=== PATIENT | male | born 1945 | race Caucasian/White ===

== ENCOUNTER → 2017-12-10 | Outpatient (CLI) | payer MEDICARE, BC ==
[2017-06-06 08:53] VITALS: BMI 28.4
[~2017-12-10] MED LIST: AMOX-559 PO; AMOXIC; ASPI-715 PO; CELE200C7 PO; FENO45CA PO; FEX60 PO; LIS10 PO; LOR5/325 PO; LOSA-54 PO; METO1TAB5 PO; METO50TA19 PO; MULT-820 PO; MULT-885 PO; OMEG10007; OMEP-153 PO; PER PO; POLY17PO21 PO; RIV10 PO; SIMV-42 PO; VIT D3 PO; WARF-1 PO
== END ==
LOC: RESP 20:33
PROVIDERS: ATTEND Nurse Practitioner Family
DX: Z02.9 Encounter for administrative examinations, unspecified (principal)

== ENCOUNTER → 2018-05-15 | Outpatient (CLI) | payer MEDICARE, BC ==
[2017-06-06 08:53] VITALS: BMI 28.4
--- NOTE | 2018-05-15 12:13 | EKG ---
FACILITY: [facility] - [place] PATIENT NAME: JULIUS LUIS : [id number] MR: [id number] V: [id number] EXAM DATE: ORDERING PHYSICIAN: VAHE FRY TECHNOLOGIST: INOCENTE Oquendo Reason : IRREGULAR Blood Pressure : / mmHG Vent. Rate : 099 BPM Atrial Rate : 099 BPM P-R Int : 134 ms QRS Dur : 078 ms QT Int : 342 ms P-R-T Axes : 072 059 053 degrees QTc Int : 438 ms Atrial flutter Nonspecific ST abnormality Abnormal ECG When compared with ECG of 03-SEP-2017 13:39, Nonspecific T wave abnormality no longer evident in Lateral leads Confirmed by KADEN CARPIO ([id number]) on 05/17/2018 2:47:09 PM Referred By: ERIC Confirmed By:KADEN CARPIO
== END ==
LOC: RESP 11:56
PROVIDERS: ATTEND Nurse Practitioner Family
DX: I48.92 Unspecified atrial flutter (principal); R94.31 Abnormal electrocardiogram [ECG] [EKG]
CPT/HCPCS: 93005

== ENCOUNTER → 2018-05-19 | Outpatient (CLI) | payer MEDICARE, BC ==
[2017-06-06 08:53] VITALS: BMI 28.4
--- NOTE | 2018-05-19 15:27 | RADIOLOGY IMAGING REPORT ---
FACILITY: [facility] PATIENT NAME: Partha Kat : 1945 MR: [id number] V: [id number] EXAM DATE: ORDERING PHYSICIAN: VAHE FRY TECHNOLOGIST: Location: [facility] [place] Patient: Partha Kat : 1945 Visit/Account:[id number] Date of Sevice: 05/19/2018 THYROID HISTORY: Primary hyperparathyroidism COMPARISON: December 10, 2016 FINDINGS: SIZE: Right lobe: 5.4 x 2.3 x 1.5 cm Left lobe: 5.4 x 2.7 x 1.4 cm Isthmus: 7 mm PARENCHYMA: Homogeneous. NODULES: Right lobe: * In the inferior aspect of the right lobe there is an isoechoic nodule measuring 7 mm in diameter. * There is an additional 1.4 cm in diameter well-circumscribed isoechoic nodule medially inferior p ole. * There is a 1.1 cm well-circumscribed hypoechoic nodule posterior aspect of the midpole. * Posterior to the upper pole the right lobe are two well-circumscribed hypoechoic nodules measuring 1.1 and 1 cm which may represent parathyroid glands Left lobe: * In the mid to upper pole there is a 1.4 cm hypoechoic nodule with coarse calcifications. This fabiola ears well totally unchanged when compared the prior study. * In the mid left lobe there is a 1.1 cm well-circumscribed spongiform nodule. There are additional smaller nodules identified bilaterally Isthmus: * None discrete. VASCULARITY: Within normal limits. ADDITIONAL FINDINGS: None. IMPRESSION: Bilateral thyroid nodules appear relatively unchanged REFERENCE: 2015 [place] [employer] Management Guidelines for Adult Patients with Thyroid Nodules and D ifferentiated Thyroid Cancer: The [place] [employer] Guidelines Task Force on Thyroid Nodul es and Differentiated Thyroid Cancer. SONOGRAPHIC PATTERNS: * Benign: Purely cystic nodules (no solid component); estimated risk of malignancy <1 percent; no bi opsy recommended. * Very Low Suspicion: Spongiform or partially cystic nodules without any of the sonographic features described in low, intermediate, or high suspicion patterns; estimated risk of malignancy <3 percent; consider FNA at > 2 cm (Observation without FNA is also a reasonable option). * Low Suspicion: Isoechoic or hyperechoic solid nodule, or partially cystic nodule with eccentric so lid areas, without microcalcification, irregular margin or ETE (extra-thyroidal extension), or taller than wide shape; estimated risk of malignancy 5-10 percent; recommend FNA at >1.5 cm. * Intermediate Suspicion: Hypoechoic solid nodule with smooth margins without microcalcifications, E TE (extra-thyroidal extension), or taller than wide shape; estimated risk of malignancy 10-20 percent ; recommend FNA at > 1 cm. * High Suspicion: Solid hypoechoic nodule or solid hypoechoic component of a partially cystic nodule with one or more of the following features: irregular margins (infiltrative, microlobulated), microc alcifications, taller than wide shape, rim calcifications with small extrusive soft tissue component, evidence of ETE (extra-thyroidal extension); estimated risk of malignancy >70-90 percent; recommend FNA at > 1 cm. NOTES: * Although a sonographically suspicious subcentimeter thyroid nodule without evidence of extrathyroi daniel extension or sonographically suspicious lymph nodes may be observed with close sonographic follow -up rather than pursuing immediate FNA, patient age and preference may modify decision-making. A > 50% interval increase in nodule volume and/or development of new suspicious sonographic features are felt to be a valid reasons for potential re-aspiration of a nodule previously shown to have benig n FNA cytology. Report Dictated By: Marianne Nicolas MD at 05/19/2018 3:16 PM Report E-Signed By: Marianne Nicolas MD at 05/19/2018 3:23 PM WSN:[email or web address]
== END ==
LOC: US 08:49
PROVIDERS: ATTEND Nurse Practitioner Family
DX: E04.2 Nontoxic multinodular goiter (principal)
CPT/HCPCS: 76536

== ENCOUNTER → 2018-07-02 | Outpatient (REF) | payer MEDICARE, BC ==
[2017-06-06 08:53] VITALS: BMI 28.4
== END ==
LOC: ZZSENDIN 09:47
PROVIDERS: ATTEND Urology
DX: R97.20 Elevated prostate specific antigen [PSA] (principal)
CPT/HCPCS: 81313

== ENCOUNTER → 2018-07-03 | Outpatient (CLI) | payer MEDICARE, BC ==
[2017-06-06 08:53] VITALS: BMI 28.4
--- NOTE | 2018-07-03 14:16 | RADIOLOGY IMAGING REPORT ---
FACILITY: [facility] - [place] PATIENT NAME: Partha Kat : 1945 MR: [id number] V: [id number] EXAM DATE: ORDERING PHYSICIAN: KADEN WILLETT TECHNOLOGIST: Location: [facility] Patient: Partha Kat : 1945 Visit/Account:[id number] Date of Sevice: 07/03/2018 Examination: Nuclear Medicine Parathyroid Scan Comparison: None available History: Hypercalcemia. Procedure: 27.3 mCi technetium 99m Sestamibi was injected intravenously. Multiplanar Gamma camera im ages were obtained of the head, neck and chest at 15 minutes and 3 hours following radiotracer admini stration. FINDINGS: 15 minute images: Normal uptake of tracer by the salivary glands, the thyroid gland, myocardium, and visualized upper abdomen. 3 hour images: Normal washout of tracer from the thyroid gland. No focal areas of abnormal radiotrac er uptake are identified in the neck or mediastinum. IMPRESSION: Negative parathyroid scan. Report Dictated By: Willy Riddle MD at 07/03/2018 2:09 PM Report E-Signed By: Willy Riddle MD at 07/03/2018 2:12 PM WSN:[email or web address]
== END ==
LOC: NUC 01:56
PROVIDERS: ATTEND Surgery
DX: E83.52 Hypercalcemia (principal)
CPT/HCPCS: 78070; 82340; A9500

== ENCOUNTER 2018-07-23 00:49 | Day surgery (SDC) | payer MEDICARE, BC ==
[2017-06-06 08:53] VITALS: Ht 188 cm; Wt 98.9 kg
[2018-07-23] VITALS (7 sets, daily range): BP systolic 147–166; BP diastolic 81–99
[~2018-07-23] VITALS: Ht 188 cm; Wt 98.9 kg
[~2018-07-23 00:49] MED LIST changes: +APIX5TAB PO; +ATOR20TA65 PO; +BENZ200C15 PO; +CHOL200074 PO; +DILT120C79 PO; +GUAI200T22 PO; +OXYGENHOME INH
[2018-07-23] MEDS ORDERED: ceFAZolin(*) 2GM/D5W 50ML 50 ML IVPB ONE (06:45)
[2018-07-23] MEDS ORDERED: NORMOSOL R SOLN(*) 1000 ML BAG 1,000 ML IV PRN (08:30)
[2018-07-23] MEDS ORDERED: MIDAZOLAM 2 MG/2 ML VIAL IVP PRN (08:30)
[2018-07-23] MEDS ORDERED: LIDOCAINE/SOD BICARB 8.4% SYR ID ONE (08:30)
[2018-07-23] MEDS ORDERED: ROPIVACAINE 0.5% 20 ML VIAL ONE (09:26)
[2018-07-23] MEDS ORDERED: GELATIN SPONGE 12-7MM ONE (09:26)
--- NOTE | 2018-07-23 09:36 | RADIOLOGY IMAGING REPORT ---
FACILITY: [facility] PATIENT NAME: Partha Kat : 1945 MR: [id number] V: [id number] EXAM DATE: ORDERING PHYSICIAN: KADEN WILLETT TECHNOLOGIST: Location: [facility] [place] Patient: Partha Kat : 1945 Visit/Account:[id number] Date of Sevice: 07/23/2018 EXAMINATION: Nuclear medicine parathyroid scan HISTORY: Preoperative testing for parathyroidectomy. Hypercalcemia. COMPARISON: Sestamibi scan from 07/03/2018. TECHNIQUE: 24.4 mCi Technetium-99m Sestamibi was injected intravenously. Gamma camera images were ob tained of the head, neck and chest immediately with flow images, and AP and lateral planar images aft er 10.3 minutes. FINDINGS: Neck: Question faint area of uptake on the right just below the thyroid on the immediate images, whic h fades gradually. Normal thyroid and salivary gland uptake. Mediastinum: Normal biodistribution. No abnormal uptake. IMPRESSION: Faint uptake on the right below the thyroid on the immediate images could be vascular or a right infe rior parathyroid adenoma. Report Dictated By: Danielle Reveles MD at 07/23/2018 9:16 AM Report E-Signed By: Danielle Reveles MD at 07/23/2018 9:32 AM WSN:[email or web address]
[2018-07-23] MEDS ORDERED: ONDANSETRON 4 MG/2 ML VIAL ONE (10:00)
[2018-07-23] MEDS ORDERED: SUCCINYLCHOL CHL 200MG/10ML VL ONE (10:00)
[2018-07-23] MEDS ORDERED: DEXAMETHASONE SOD PHOS 10MG/ML ONE (10:00)
[2018-07-23] MEDS ORDERED: PROPOFOL EMUL 10MG/ML 20 ML VL ONE (10:00)
[2018-07-23] MEDS ORDERED: fentaNYL CITR 100 MCG/2 ML AMP ONE ×2 (10:04→11:25)
[2018-07-23] MEDS ORDERED: DOCU-416 PO (12:24)
[2018-07-23] MEDS ORDERED: OXYC-854 PO (12:24)
--- NOTE | 2018-07-23 12:31 | Short(Outpt) Discharge Summary ---
Discharge Summary Reason for Hosp/Final Diag: (1) Primary hyperparathyroidism Status: Chronic Hospital Course & Plan: Right superior parathyroid adenoma excision completed without problems. Departure Discharge to: Home, Self Care Discharge Instructions Home Meds Active Scripts Docusate Sodium (COLACE) 100 Mg Capsule, 1 CAP PO BID, #30 CAP 0 Refills TAKE WITH A FULL GLASS OF WATER Prov:KADEN WILLETT MD 07/23/18 Oxycodone Hcl/Acet 5/325 Mg (ENDOCET 5-325 TABLET) 1 Each Tablet, 1 TAB PO Q4H PRN for PAIN, #20 TAB 0 Refills Prov:KADEN WILLETT MD 07/23/18 Reported Medications Benzonatate (BENZONATATE) 200 Mg Capsule, 200 MG PO TID PRN for prn, #15 CAP 07/13/18 Diltiazem Hcl (DILTIAZEM ER) 120 Mg Cap.er.deg, 120 MG PO QDAY 07/13/18 Oxygen (OXYGEN) Inha, 2 L INH HS, L WHILE SLEEPING 07/13/18 Apixaban (ELIQUIS) 5 Mg Tablet, 5 MG PO BID 07/13/18 Atorvastatin Calcium (ATORVASTATIN CALCIUM) 20 Mg Tablet, 1 TAB PO QDAY, TAB 07/13/18 Cholecalciferol (Vitamin D3) (VITAMIN D-3) 2,000 Unit Capsule, 2000 UNIT PO QDAY, CAPSULE 07/13/18 Fenofibric Acid (Choline) (FENOFIBRIC ACID) 45 Mg Capsule.dr, 45 MG PO DAILY 06/05/17 Omeprazole (Omeprazole) 20 Mg Tablet.dr, 40 MG PO DAILY, 0 Refills 09/26/08 Discontinued Reported Medications Guaifenesin (GUAIFENESIN) 200 Mg Tablet, 200 MG PO PRN 07/13/18 Follow up Referrals: General Surgery - 08/05/18 @ Surgery, General with KADEN WILLETT MD You have a follow up appointment scheduled with Dr. Willett on 08/05/18, at 1:00pm. Diet: Regular Activity: As Tolerated Special Instructions: You may leave the incision open to air but leave the steristrips in place until they fall off on their own. You may shower starting on 07/25/18, but do not immerse the incision for 2 weeks. You may restart your Eliquis on 07/26/18. Avoid NSAIDS (ibuprofen, motrin, aleve, advil, etc) for 1 week after surgery. Tylenol (acetaminophen) is OK. Copies to: VAHE FRY ; KADEN WILLETT MD Jul 23, 2018 12:31
--- NOTE | 2018-07-23 12:40 | Post Operative Progress Note ---
Post Operative Progress Note Date: Jul 23, 2018 Time: 12:31 Surgeon: Lashon Dictation number: [id number] Anesthesia: GETA by Dr. 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
--- NOTE | 2018-07-23 14:15 | OPERATIVE REPORT 1 ---
EVENT DATE: July 23, 2018 SURGEON: Bismark Oates MD ANESTHESIOLOGIST: Oli Virgen MD ANESTHESIA: General endotracheal anesthesia. PREOPERATIVE DIAGNOSIS Primary hyperparathyroidism. 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 PROCEDURE PERFORMED Right neck exploration with excision of a right superior parathyroid adenoma. COMPLICATIONS None. CONDITION Stable. ESTIMATED BLOOD LOSS Minimal. FINDINGS This patient had a 2 cm in diameter right superior parathyroid adenoma. His presurgical parathyroid hormone level was measured at 200, and his preexcision intraoperative rapid parathyroid hormone level was 500, and then at 10 minutes was 70, and then continued to decline every 10 minutes to 50 and then 30. INDICATIONS This is a 73-year-old gentleman who was referred to my office with hypercalcemia with an inappropriately elevated parathyroid hormone then about 76. Preoperative imaging was read as no localizable adenomas, but on my reading, I was very suspicious of a right superior parathyroid adenoma based on the parathyroid scan and also on the ultrasound there was a nodule posterior to the superior pole of the thyroid suspicious for a parathyroid adenoma. This patient has provided consent for a neck exploration and removal of one or more of his parathyroid glands. DESCRIPTION OF PROCEDURE The patient was brought to the operating room and placed upon the operating table. General endotracheal anesthesia was administered with a endotracheal tube for nerve monitoring and nerve monitoring equipment and leads were all set up on the patient. He was placed in the reclining beach chair configuration and we had a second IV set up for blood draws. His neck was then prepped and draped in sterile fashion. A timeout was completed. I had previously marked his neck in a crease just above the suprasternal notch and made just over a 1 inch incision in this area after injecting the skin with 0.5% Ropivacaine plain. I dissected through the dermis and subcutaneous and divided the platysmas muscle, created subplatysmal flaps both superior and inferiorly and then divided the median raphe between the strap muscles. I then developed the plane just anterior to the thyroid and posterior to the strap muscles over to the right and then slowly mobilized the right thyroid lobe without dividing the vasculature. I did divide the middle thyroidal vein using clips and dividing the vein between clips. I was able to identify the inferior parathyroid gland which appeared normal in size, texture and color. I then identified the superior parathyroid gland which was very large and very dark in color and multilobular. I dissected this free while preserving its vascular inflow and then just before dividing its vascular pedicle we madiha a parathyroid hormone level which was over 500. Immediately before surgery we tested our IV line and before incision was even made the parathyroid hormone level was 200. I then divided the vascular pedicle and then sent the parathyroid gland fresh to pathology. Prior to doing this I put the gamma probe on it and the patient had been preoperatively injected with Technetium and the gamma output was read at about 40, whereas the baseline was at about 25 showing other evidence of parathyroid adenoma. We then checked parathyroid hormone levels at 10 minutes after excision and then 20 and then 30. The 10 minute was 70, the 20 minute was 55 and the 30 minute parathyroid hormone levels were at 33 indicating a good resection and no further hyperparathyroidism. I also sent the parathyroid for frozen and actually walked over there while we were waiting for the parathyroid hormone levels to come back, and I looked at the parathyroid gland under the microscope with the pathologist and he confirmed it looked consistent with a parathyroid adenoma. After this, I went to the operating room, scrubbed back in, irrigated and dried the patient's right neck. I placed some Fibrillar in there. There was not really much in the way of bleeding. I then reapproximated the median raphe between the strap muscles with interrupted 3-0 Vicryl sutures and the platysmas muscle was reapproximated with interrupted 3-0 Vicryl sutures. The skin was closed with interrupted 3-0 Vicryl deep dermal sutures and 4-0 Monocryl running subcuticular sutures. The skin was cleaned, dried and Steri-Strips were applied longitudinally over the incision and this would serve as the patient's dressing. I had the anesthesiologist extubate the patient while he was deep and we used the GlideScope to look at the vocal cords. We had also done this preoperatively and they were symmetric preoperatively and postoperatively. He was then further awakened and then brought to the recovery room in stable condition having tolerated the procedure without any apparent problems. GLORIA
[2018-07-24] MEDS ORDERED: CALC500T6 PO (09:52)
== END 2018-07-23 13:13 | disposition home or self-care (01) ==
LOC: OR 00:49
PROVIDERS: ATTEND Surgery
DX: D35.1 Benign neoplasm of parathyroid gland (principal)
CPT/HCPCS: 60500; 78070; 83970; 88305; 88331; A9500; J0330; J1100; J2405; J2704; J2795; J3010; J0690

== ENCOUNTER → 2018-11-18 | Outpatient (CLI) | payer MEDICARE, BC ==
[2017-06-06 08:53] VITALS: BMI 28.4
[~2018-11-18] MED LIST changes: +CALC500T6 PO; +DOCU-416 PO; +OXYC-854 PO; +POLY17PO11 PO; -POLY17PO21 PO
--- NOTE | 2018-11-20 21:09 | RT HOLTER TEST ---
FACILITY: [facility] - [place] PATIENT NAME: JULIUS LUIS : [id number] MR: [id number] V: [id number] EXAM DATE: ORDERING PHYSICIAN: VAHE FRY TECHNOLOGIST: UZIEL Hook-up date: 2018-11-18 11:19:00 Duration: 47:59:00 Test Indications: DIZZY Medications: 152995 QRS complexes 2588 Ventricular ectopics which represent 1 % of total QRS comp. 5933 Supraventricular ectopics which represent 2 % of total QRS comp. * Paced QRS complexes which represent % of total QRS comp. VENTRICULAR ECTOPY 2527 Isolated 44 Bigeminal Cycles 24 Couplets 3 Runs 13 Beats in Runs 6 Beats LONGEST at 153 BPM at 12:50:07 2018-11-18 6 Beats FASTEST at 153 BPM at 12:50:07 2018-11-18 SUPRAVENTRICULAR ECTOPY 5714 Isolated 108 Couplets 1 Runs 3 Beats in Runs 3 Beats LONGEST at 174 BPM at 10:57:43 2018-11-19 3 Beats FASTEST at 174 BPM at 10:57:43 2018-11-19 HEART RATES 55 MIN at 06:24:58 2018-11-20 80 AVG 151 MAX at 12:50:08 2018-11-18 LONGEST RR 1.448 secs at 02:07:06 2018-11-20 S-T LEVELS Channel 1 -12.800 mm MIN at 11:19:00 2018-11-18 -12.800 mm MAX at 11:19:00 2018-11-18 Channel 2 -12.800 mm MIN at 11:19:00 2018-11-18 -12.800 mm MAX at 11:19:00 2018-11-18 Channel 3 -12.800 mm MIN at 11:19:00 2018-11-18 -12.800 mm MAX at 11:19:00 2018-11-18 Sinus rhythm Frequent Premature ventricular complexes Frequent Premature supraventricular complexes Confirmed by KADEN CARPIO ([id number]) on 11/20/2018 9:08:56 PM Referred By: Overread By: KADEN CARPIO
== END ==
LOC: RESP 01:30
PROVIDERS: ATTEND Nurse Practitioner Family
DX: I49.3 Ventricular premature depolarization (principal)
CPT/HCPCS: 93225; 93226

== ENCOUNTER → 2019-04-28 | Outpatient (CLI) | payer MEDICARE, BC ==
[2017-06-06 08:53] VITALS: BMI 28.4
--- NOTE | 2019-04-29 12:53 | RADIOLOGY IMAGING REPORT ---
FACILITY: [facility] PATIENT NAME: Partha Kat : 1945 MR: [id number] V: [id number] EXAM DATE: ORDERING PHYSICIAN: VAHE FRY TECHNOLOGIST: Location: [facility] [place] Patient: Partha Kat : 1945 Visit/Account:[id number] Date of Sevice: 04/28/2019 US GROIN HISTORY: Left groin abnormality. Rule out hernia. COMPARISON: CT examination chest abdomen and pelvis from May 2017 FINDINGS: Duplex sonographic images of the left groin were obtained. There is a bowel and fat-containing left i nguinal hernia. No mass or drainable fluid collection. IMPRESSION: There is a bowel and fat-containing left inguinal hernia Report Dictated By: Reynaldo Sanz MD at 04/28/2019 5:13 PM Report E-Signed By: Reynaldo Sanz MD at 04/29/2019 12:48 PM WSN:[id number]
== END ==
LOC: US 00:28
PROVIDERS: ATTEND Nurse Practitioner Family
DX: K40.90 Unilateral inguinal hernia, without obstruction or gangrene, not specified as recurrent (principal)
CPT/HCPCS: 76705

== ENCOUNTER → 2019-05-25 | Outpatient (CLI) | payer MEDICARE, BC ==
[2017-06-06 08:53] VITALS: BMI 28.4
[~2019-05-25] MED LIST changes: +GUAI600T57 PO; +MULT1TAB54 PO; +SIL20 PO; +VALS160T8 PO; +VITA-175 PO
--- NOTE | 2019-05-25 16:58 | EKG ---
FACILITY: [facility] PATIENT NAME: JULIUS LUIS : [id number] MR: [id number] V: [id number] EXAM DATE: ORDERING PHYSICIAN: KADEN WILLETT TECHNOLOGIST: Test Reason : pre-op Blood Pressure : / mmHG Vent. Rate : 084 BPM Atrial Rate : 084 BPM P-R Int : 168 ms QRS Dur : 084 ms QT Int : 348 ms P-R-T Axes : 059 049 081 degrees QTc Int : 411 ms Normal sinus rhythm Nonspecific ST and T wave abnormality Abnormal ECG When compared with ECG of 15-MAY-2018 12:00, Sinus rhythm has replaced Atrial flutter Nonspecific T wave abnormality now evident in Lateral leads Confirmed by JOSE RAUL MURDOCK ([id number]) on 05/25/2019 6:09:49 PM Referred By: Confirmed By:JOSE RAUL MURDOCK
== END ==
LOC: CARD 15:49
PROVIDERS: ATTEND Surgery
DX: Z01.810 Encounter for preprocedural cardiovascular examination (principal); R94.31 Abnormal electrocardiogram [ECG] [EKG]
CPT/HCPCS: 93005

== ENCOUNTER → 2019-05-27 | Day surgery (SDC) | payer MEDICARE, BC ==
[2017-06-06 08:53] VITALS: Ht 188 cm; Wt 98.9 kg
[~2019-05-27] VITALS: Ht 188 cm; Wt 98.9 kg
[2019-05-27] VITALS (8 sets, daily range): BP systolic 141–167; BP diastolic 83–97
[~2019-05-27] MED LIST changes: +ACETAMINOPHEN 500 MG TAB PO ONE; +DEXAMETHASONE SOD PHOS 10MG/ML ONE; +KETAMINE HCL-NS 50 MG/5 ML SYR ONE; +LIDOCAINE MPF 1% 5 ML VIAL ONE; +LIDOCAINE/SOD BICARB 8.4% SYR ID ONE; +MIDAZOLAM 2 MG/2 ML VIAL IVP PRN; +NORMOSOL R SOLN(*) 1000 ML BAG 1,000 ML IV PRN; +ONDANSETRON 4 MG/2 ML VIAL ONE; +PREGABALIN 150 MG CAPSULE PO ONE; +PREGABALIN 75 MG CAPSULE PO ONE; +PROPOFOL EMUL(*) 10MG/ML 20 ML 20 ML ONE; +ROCURONIUM BR 10 MG/ML 5 ML SY 5 ML ONE; +ROPIVACAINE 0.5% 20 ML VIAL ONE; +SUGAMMADEX SOD 200 MG/2 ML SDV ONE; +TRAM-420 PO; +ceFAZolin(*) 2GM/D5W 50ML 50 ML IVPB ONE; +fentaNYL CITR 100 MCG/2 ML AMP ONE
--- NOTE | 2019-05-27 09:57 | Short(Outpt) Discharge Summary ---
Discharge Summary Reason for Hosp/Final Diag: (1) Left inguinal hernia Status: Chronic Hospital Course & Plan: Robotic LIH repair completed without problems. Departure Discharge to: Home, Self Care Discharge Instructions Home Meds Active Scripts Docusate Sodium (COLACE) 100 Mg Capsule, 1 CAP PO BID, #30 CAP 0 Refills TAKE WITH A FULL GLASS OF WATER Prov:KADEN WILLETT MD 05/27/19 Tramadol Hcl (TRAMADOL HCL) 50 Mg Tablet, 1 TAB PO Q4H PRN for PAIN, #15 TAB 0 Refills Prov:KADEN WILLETT MD 05/27/19 Reported Medications Sildenafil Citrate (REVATIO) 20 Mg Tab, 20 MG PO PRN, TAB 05/04/19 Guaifenesin (MUCINEX) 600 Mg Tablet.er, 600 MG PO PRN 05/04/19 Multivitamin (MULTI-VITAMIN DAILY) 1 Each Tablet, 1 EACH PO QDAY 05/04/19 Vitamin B Complex (B COMPLEX) 1 Each Tablet, 1 EACH PO QDAY 05/04/19 Valsartan (Valsartan) 160 Mg Tablet, 1 TAB PO QDAY 05/04/19 Benzonatate (BENZONATATE) 200 Mg Capsule, 200 MG PO TID PRN for prn, #15 CAP 07/13/18 Oxygen (OXYGEN) Inha, 2 L INH HS, L WHILE SLEEPING 07/13/18 Apixaban (ELIQUIS) 5 Mg Tablet, 5 MG PO BID 07/13/18 Atorvastatin Calcium (ATORVASTATIN CALCIUM) 20 Mg Tablet, 1 TAB PO QDAY, TAB 07/13/18 Cholecalciferol (Vitamin D3) (VITAMIN D-3) 2,000 Unit Capsule, 2000 UNIT PO QDAY, CAPSULE 07/13/18 Fenofibric Acid (Choline) (FENOFIBRIC ACID) 45 Mg Capsule.dr, 45 MG PO DAILY 06/05/17 Omeprazole (Omeprazole) 20 Mg Tablet.dr, 20 MG PO DAILY, 0 Refills 09/26/08 Follow up Referrals: General Surgery - 06/11/19 @ Surgery, General with KADEN WILLETT MD You have a follow up appointment scheduled with Dr. Willett on 06/11/19, at 9:30am. Diet: Regular Activity: As Tolerated Special Instructions: You may remove the white surgical dressings on 05/29/19, then you can shower. After showering, leave the incisions open to air but leave the steristrips in place until they fall off on their own. Do not immerse the incisions for 2 weeks. Avoid any activity that involves straining or lifting more than 10 pounds for 2 weeks after surgery. Avoid all NSAIDS (ibuprofen, motrin, aleve, advil, aspirin, etc) until 05/29/19. You may take tylenol (acetaminophen) in addition to the tramadol I've prescribed for you. You may restart eliquis on 05/29/19. KADEN WILLETT MD May 27, 2019 09:57
--- NOTE | 2019-05-27 10:03 | Post Operative Progress Note ---
Post Operative Progress Note Date: May 27, 2019 Time: 09:55 Surgeon: Lashon Dictation number: [id number] Anesthesia: GETA by Dr. Sethi Pre-Op Diagnosis: LIH Post-Op Diagnosis: RUPERT, indirect Findings: C/W indirect LIH Procedure(s): Robotic LIH repair Specimen Removed:(May be N/A): None Complications: None Fluids: See anesthesia record Estimated Blood Loss: Minimal Date OP Note Dictated: May 27, 2019 Time OP Note Dictated: 09:56 KADEN WILLETT MD May 27, 2019 10:03
--- NOTE | 2019-05-27 11:25 | NUR ---
BROUGHT TO BEDSIDE. ASSESSMENT WNL. URINAL PLACED AT BEDSIDE. PT. REQUESTING TO REST. DENIES PAIN OR NAUSEA.
--- NOTE | 2019-05-28 07:54 | OPERATIVE REPORT 1 ---
EVENT DATE: May 27, 2019 SURGEON: Bismark Oates MD ANESTHESIOLOGIST: David Sethi MD ANESTHESIA: General. PREOPERATIVE DIAGNOSIS Left inguinal hernia. POSTOPERATIVE DIAGNOSIS Left inguinal hernia. PROCEDURE Robotic left inguinal hernia repair with mesh. COMPLICATIONS None. CONDITION Stable. ESTIMATED BLOOD LOSS Minimal. FINDINGS Patient had an indirect left inguinal hernia. INDICATIONS This is a 74-year-old gentleman who presented to my office with a left groin bulge that is getting bigger and causing him more discomfort. He was requesting to have it repaired. DESCRIPTION OF PROCEDURE The patient was brought to the operating room, placed supine on the operating table. General endotracheal anesthesia was administered and his abdomen was prepped and draped in sterile fashion. Time out was completed and I injected the left subcostal skin with 0.5% ropivacaine plain and made an 8 mm transverse incision in the left upper abdominal quadrant. I used the Veress needle and accessed the peritoneal cavity with no problem and insufflated the peritoneal cavity to a pressure of 15 mmHg and then inserted an 8 mm robotic optical trocar into the patients abdomen with the camera and then focused under direct visualization without any problems. I then placed another 8 mm robotic port in the epigastric midline and another 8 mm robotic port in the right upper quadrant. Next, I inspected both groins with the patient in Trendelenburg and the previously repaired right groin had no evidence of a hernia. The left groin did have hernia containing some of the sigmoid colon. I then brought the robot in, docked it and targeted the robot, inserted the instruments, scrubbed out and went to the console and then divided the peritoneum across the midline all the way across the left lower abdomen to just medial to the anterior superior iliac spine on the left. I then created the preperitoneal space all the way down to the groin and visualized the ileopubic tract as well as pubic tubercle medially and Coopers ligament medially. The hernia was fairly large and I was able to clearly identify the cord structures in the hernia sac and he also had sort of a multilobulated large cord lipoma, which I easily reduced and from the cord structures. I then identified the hernia sac and used traction/counter- traction to identify the edge of the sac and this from the cord structures. The vas deferens and gonado vessels were easily identified and preserved. Once the sac was from the cord structures and quite proximally up well above where the cord structures separate from each other, allowing me enough room to put mesh in without expecting the hernia sac to go underneath the mesh. I then had previously placed the left sided ProGrip mesh into the abdomen as well as a V-Loc absorbable suture so I put the mesh in the preperitoneal spaced, unfurled it so it laid nice and flat and covered the whole myopectineal orifice with several centimeters of overlap on all sides. I covered the pubic tubercle medially and the ileopubic tract laterally. I made sure it laid flat and once I was happy with how it looked I closed the peritoneal defect with running V-Loc absorbable suture. I then undocked the robot, removed the instruments, desufflated the abdomen, removed the ports and then closed the skin at each of the port sites with a 4-0 Monocryl subcuticular suture. The skin was clean, dried and Steri-Strips applied followed by sterile surgical dressings. The patient was awakened and extubated in the operating room and transported to the recovery room in stable condition, having tolerated the procedure without any apparent problems. GLORIA
== END ==
LOC: OR 00:53
PROVIDERS: ATTEND Surgery
DX: K40.90 Unilateral inguinal hernia, without obstruction or gangrene, not specified as recurrent (principal)
CPT/HCPCS: 49650; A9270; C1781; J1100; J2001; J2405; J2704; J2795; J3010; J3490; J7030; S2900; J0690